=== PATIENT | male | born 1980 ===

== ENCOUNTER 2022-02-04 09:38 | Emergency (ER) | payer MEDICAID ==
[2022-02-04 09:44] VITALS: BP 144/74
== END 2022-02-04 23:26 | disposition left against medical advice (07) ==
LOC: ED 09:38
DX: S49.80XA Other specified injuries of shoulder and upper arm, unspecified arm, initial encounter (principal); R07.9 Chest pain, unspecified; Z53.21 Procedure and treatment not carried out due to patient leaving prior to being seen by health care provider; X58.XXXA Exposure to other specified factors, initial encounter; Y93.89 Activity, other specified; Y92.89 Other specified places as the place of occurrence of the external cause; Y99.8 Other external cause status